=== PATIENT | male | born 1950 | race Caucasian/White ===

== ENCOUNTER 2016-03-15 22:49 | Emergency (ER) | payer OTHER ==
[2016-03-16] MEDS ORDERED: CALCIUM CITRAT1 EAC9 PO (05:21)
[2016-03-16] MEDS ORDERED: PROAIR HFA0.09 MG/AC IH (05:21)
[2016-03-16] MEDS ORDERED: ASPIRIN ADULT L81 M3 PO (05:21)
[2016-03-16] MEDS ORDERED: COLACE100 M1 PO (05:22)
[2016-03-16] MEDS ORDERED: CARVEDILOL25 MG PO (05:22)
[2016-03-16] MEDS ORDERED: VITAMIN D 50,1.25 MG PO (05:23)
[2016-03-16] MEDS ORDERED: FLUTICASONE PROP5 GM MM (05:24)
[2016-03-16] MEDS ORDERED: HCTZ 25MG25 MG PO (05:25)
[2016-03-16] MEDS ORDERED: MELATONIN + L-TH3 MG PO (05:25)
[2016-03-16] MEDS ORDERED: METFORMIN HYD1000 M1 PO (05:26)
[2016-03-16] MEDS ORDERED: MIRTAZAPINE30 MG PO (05:27)
[2016-03-16] MEDS ORDERED: PROCARDIA XL90 M1 PO (05:27)
[2016-03-16] MEDS ORDERED: PANTOPRAZOLE SO20 MG PO (05:28)
[2016-03-16] MEDS ORDERED: CARAFATE 1GM1 G PO (05:28)
[2016-03-16] MEDS ORDERED: CONZIP100 MG PO (05:29)
[2016-03-16] MEDS ORDERED: VIAGRA 25MG TAB25 MG PO (05:30)
[2016-03-16] MEDS ORDERED: LOSARTAN POTAS100 MG PO (05:31)
[2016-03-16] MEDS ORDERED: DHA PO (05:31)
[2016-03-16] MEDS ORDERED: ATORVASTATIN CA80 MG PO (05:31)
== END 2016-03-16 08:00 | disposition home or self-care (01) ==
LOC: ED 22:49
DX: S70.02XA Contusion of left hip, initial encounter (principal); S30.0XXA Contusion of lower back and pelvis, initial encounter; F10.129 Alcohol abuse with intoxication, unspecified; F17.210 Nicotine dependence, cigarettes, uncomplicated; Z79.82 Long term (current) use of aspirin; W19.XXXA Unspecified fall, initial encounter; Y92.018 Other place in single-family (private) house as the place of occurrence of the external cause
CPT/HCPCS: J1885; J3411; J7030

== ENCOUNTER 2016-03-18 22:34 | Emergency (ER) | payer OTHER ==
[~2016-03-18 22:34] MED LIST: ASPIRIN ADULT L81 M3 PO; ATORVASTATIN CA80 MG PO; CALCIUM CITRAT1 EAC9 PO; CARAFATE 1GM1 G PO; CARVEDILOL25 MG PO; COLACE100 M1 PO; CONZIP100 MG PO; DHA PO; FLUTICASONE PROP5 GM MM; HCTZ 25MG25 MG PO; LOSARTAN POTAS100 MG PO; MELATONIN + L-TH3 MG PO; METFORMIN HYD1000 M1 PO; MIRTAZAPINE30 MG PO; PANTOPRAZOLE SO20 MG PO; PROAIR HFA0.09 MG/AC IH; PROCARDIA XL90 M1 PO; VIAGRA 25MG TAB25 MG PO; VITAMIN D 50,1.25 MG PO
[2016-03-18 22:39] VITALS: BP 121/67
== END 2016-03-19 00:30 | disposition left against medical advice (07) ==
LOC: ED 22:34
DX: S09.90XA Unspecified injury of head, initial encounter (principal); R07.81 Pleurodynia; R07.82 Intercostal pain; M25.552 Pain in left hip; M54.5 Low back pain; W19.XXXA Unspecified fall, initial encounter; F10.129 Alcohol abuse with intoxication, unspecified; Y92.018 Other place in single-family (private) house as the place of occurrence of the external cause
CPT/HCPCS: J1885; J3411; J7030